=== PATIENT | male | born 1970 | race African-American/Black ===

== ENCOUNTER 2017-03-02 11:52 | Emergency (ER) | payer OTHER ==
[~2017-03-02] VITALS: Ht 180.3 cm; Wt 69.2 kg
[~2017-03-02 11:52] MED LIST: AUGMENTIN875 MG PO; BACTRIM,SEPT1 TABLET PO; CIPRO500 MG PO; CYCLOBENZAPRINE10 MG PO; HIV MEDS; MOTRIN600 MG PO; NAPROSYN250 MG PO; NOHOMEMEDS; OXYCODONE5 MG PO; PERCOCET 5/31 TABLET PO; ZOFRAN4 MG PO
[2017-03-02 12:09] VITALS: BP 130/93
[2017-03-02] MEDS ORDERED: ISENTRESS400 MG PO (13:06)
[2017-03-02] MEDS ORDERED: TRUVADA1 TABLET PO (13:07)
[2017-03-02 13:33] LABS: HEMATOCRIT 41.1 % (38.0-50.0); MCHC 33.3 G/DL (30.0-36.0); MCV 90.1 FL (86-99); MEAN PLAT.VOLUME 11.8 uM^3 (9.0-12.4); PLATELET COUNT 87 K/uL (156-360); RBC DIS.WIDTH-CV 13.5 % (11.8-14.6); RBC DIS.WIDTH-SD 44.7 % (39-53); RED BLOOD COUNT 4.56 M/uL (4.00-5.50); WHITE BLOOD COUNT 7.4 K/uL (4.1-10.2)
[2017-03-02 13:41] LABS: D-DIMER ELISA < 150.00 ng/mLDDU (<230)
[2017-03-02 13:42] LABS: CHLORIDE 105 mEq/L (99-109); POTASSIUM 4.1 mEq/L (3.7-5.4); SODIUM 138 mEq/L (136-147)
[2017-03-02 13:44] LABS: GLUCOSE 115 mg/dL (70-99)
[2017-03-02 13:45] LABS: ANION GAP 8 MEQ/L (2-14)
[2017-03-02 13:48] LABS: GFR ESTIMATE (CALCULATED) > 59 mL/min/
[2017-03-02 13:49] LABS: UREA NITROGEN (BUN) 11 mg/dL (9-23)
[2017-03-02 13:53] LABS: TROP-I INTERPRETATION NEGATIVE; TROPONIN-I < 0.01 ng/mL (0.0-0.30)
[2017-03-02] MEDS ORDERED: FLEXERIL10 MG PO (14:47)
[2017-03-02] MEDS ORDERED: NAPROSYN500 MG PO (14:47)
== END 2017-03-02 15:03 | disposition home or self-care (01) ==
LOC: EME 11:52
PROVIDERS: Physician Assistant Medical
DX: M54.9 Dorsalgia, unspecified (principal); B20 Human immunodeficiency virus [HIV] disease; F17.200 Nicotine dependence, unspecified, uncomplicated
CPT/HCPCS: 71020; 80048; 84484; 85027; 85379; 93005; 99281; 99285; J2270

== ENCOUNTER 2017-04-07 10:16 | Inpatient (IN) | payer OTHER ==
[~2017-04-07] VITALS: Ht 180.3 cm; Wt 63.0 kg
[~2017-04-07 10:16] MED LIST changes: +FLEXERIL10 MG PO; +ISENTRESS400 MG PO; +NAPROSYN500 MG PO; +TRUVADA1 TABLET PO
[2017-04-07 10:39] LABS: HEMATOCRIT 33.4 % (38.0-50.0); HEMOGLOBIN 11.3 G/DL (12.5-16.6); MCH 29.2 PG (29.0-34.0); MCHC 33.8 G/DL (30.0-36.0); MCV 86.3 FL (86-99); PLATELET COUNT 111 K/uL (156-360); RBC DIS.WIDTH-CV 12.9 % (11.8-14.6); RBC DIS.WIDTH-SD 40.7 % (39-53); RED BLOOD COUNT 3.87 M/uL (4.00-5.50); WHITE BLOOD COUNT 13.5 K/uL (4.1-10.2)
[2017-04-07 10:50] LABS: CHLORIDE 100 mEq/L (99-109); POTASSIUM 3.9 mEq/L (3.7-5.4); SODIUM 134 mEq/L (136-147)
[2017-04-07 10:51] LABS: GLUCOSE 139 mg/dL (70-99)
[2017-04-07 10:55] LABS: CREATININE 0.9 mg/dL (0.6-1.3); GFR ESTIMATE (CALCULATED) > 59 mL/min/ (58.99-99999)
[2017-04-07 10:56] LABS: UREA NITROGEN (BUN) 13 mg/dL (9-23)
[2017-04-07 13:07] LABS: ERTH.SED.RATE 59 MM/HR (0-15)
[2017-04-07 13:09] LABS: C-REACTIVE PROTEIN 74.5 MG/L (0-10)
[2017-04-07 13:55] LABS: APPEARANCE SL.HAZY ((CLEAR)); BILIRUBIN NEGATIVE; BLOOD NEGATIVE; COLOR AMBER ((YELLOW)); GLUCOSE (STRIP) NEGATIVE; KETONES NEGATIVE; LEUKOCYTES NEGATIVE; NITRITE NEGATIVE; PROTEIN (STRIP) 30; SPECIFIC GRAVITY 1.021 (1.000-1.030)
[2017-04-07 14:05] LABS: BACTERIA RARE /HPF; EPITHELIAL CELLS RARE /HPF; HYALINE CASTS 0-5 /LPF; MUCUS 4+ /LPF; RED BLOOD CELLS 0-5 /HPF (0-5); UCUL ADDED? NO; WHITE BLOOD CELLS 0-5 /HPF (0-5)
[2017-04-07] MEDS ORDERED: XANAX1 MG PO (16:06)
[2017-04-07] MEDS ORDERED: RISPERDAL2 MG PO (16:06)
[2017-04-07 16:39] VITALS: BP 102/63
[2017-04-07 17:17] LABS: ALBUMIN 3.6 G/DL (3.2-4.8); ALKALINE PHOSPHATASE 77 IU/L (3-129); ALT (GPT) 28 IU/L (3-49); AST (GOT) 48 IU/L (2-34); DIRECT BILIRUBIN 0.2 mg/dL (0.0-0.3); TOTAL BILIRUBIN 0.9 MG/DL (0.0-1.0); TOTAL PROTEIN 7.7 G/DL (6.4-8.3)
[2017-04-07 19:57] VITALS: BP 98/67
[2017-04-08] VITALS: BP 122/97
[2017-04-08 04:00] VITALS: BP 126/79
[2017-04-08 09:12] LABS: HEMATOCRIT 31.2 % (38.0-50.0); HEMOGLOBIN 10.4 G/DL (12.5-16.6); MCHC 33.3 G/DL (30.0-36.0); MCV 86.9 FL (86-99); RBC DIS.WIDTH-CV 12.9 % (11.8-14.6); RBC DIS.WIDTH-SD 41.1 % (39-53); RED BLOOD COUNT 3.59 M/uL (4.00-5.50); WHITE BLOOD COUNT 8.4 K/uL (4.1-10.2)
[2017-04-08 09:20] LABS: CHLORIDE 105 MEQ/L (99-109); POTASSIUM 4.1 MEQ/L (3.7-5.4); SODIUM 136 MEQ/L (136-147)
[2017-04-08 09:25] LABS: CREATININE 0.7 MG/DL (0.6-1.3); GFR ESTIMATE (CALCULATED) > 59 mL/min/ (58.99-99999); UREA NITROGEN (BUN) 10 mg/dL (9-23)
[2017-04-08 09:26] LABS: GLUCOSE 88 mg/dL (70-99)
[2017-04-08 09:28] LABS: PLAT.SUFFICIENCY DECREASED; PLATELET CLUMPS PRESENT - PLATELET COUNTS APPEARS DECREASED; PLATELET COUNT UNABLE TO REPORT K/uL (156-360)
[2017-04-08 11:53] LABS: BENZODIAZEPINES, URINE SCREEN POSITIVE (200 ng/mL)
[2017-04-08 12:26] VITALS: BP 123/84
[2017-04-08 15:51] VITALS: BP 131/89
[2017-04-08 20:35] VITALS: BP 139/90
[2017-04-09 01:06] VITALS: BP 142/99
[2017-04-09 03:01] VITALS: BP 155/106
[2017-04-09 04:34] VITALS: BP 161/103
[2017-04-09 06:47] LABS: HEMATOCRIT 35.8 % (38.0-50.0); HEMOGLOBIN 11.8 G/DL (12.5-16.6); MCH 28.5 PG (29.0-34.0); MCV 86.5 FL (86-99); RBC DIS.WIDTH-CV 12.9 % (11.8-14.6); RBC DIS.WIDTH-SD 40.8 % (39-53); RED BLOOD COUNT 4.14 M/uL (4.00-5.50); WHITE BLOOD COUNT 9.2 K/uL (4.1-10.2)
[2017-04-09 07:07] LABS: CHLORIDE 104 MEQ/L (99-109); CREATININE 0.6 MG/DL (0.6-1.3); GFR ESTIMATE (CALCULATED) > 59 mL/min/ (58.99-99999); GLUCOSE 122 mg/dL (70-99); POTASSIUM 4.2 MEQ/L (3.7-5.4); SODIUM 135 MEQ/L (136-147); UREA NITROGEN (BUN) 7 mg/dL (9-23)
[2017-04-09 07:26] LABS: PLAT.SUFFICIENCY DECREASED; PLATELET CLUMPS PRESENT - PLATELET COUNT APPEARS ADQ.; PLATELET COUNT UNABLE TO REPORT K/uL (156-360)
[2017-04-09 07:48] VITALS: BP 135/87
[2017-04-09 12:19] VITALS: BP 160/88
[2017-04-09 16:00] VITALS: BP 150/94
[2017-04-10 00:06] VITALS: BP 164/105
[2017-04-10 05:42] VITALS: BP 150/90
[2017-04-10 06:06] LABS: HEMATOCRIT 34.7 % (38.0-50.0); HEMOGLOBIN 11.8 G/DL (12.5-16.6); MCH 29.5 PG (29.0-34.0); MCV 86.8 FL (86-99); RBC DIS.WIDTH-CV 13.1 % (11.8-14.6); RBC DIS.WIDTH-SD 41.3 % (39-53); WHITE BLOOD COUNT 11.5 K/uL (4.1-10.2)
[2017-04-10 06:21] LABS: PLATELET COUNT 52 K/uL (156-360)
[2017-04-10 06:50] LABS: CHLORIDE 102 MEQ/L (99-109); CREATININE 0.7 MG/DL (0.6-1.3); GFR ESTIMATE (CALCULATED) > 59 mL/min/ (58.99-99999); GLUCOSE 119 mg/dL (70-99); POTASSIUM 4.4 MEQ/L (3.7-5.4); SODIUM 135 MEQ/L (136-147); UREA NITROGEN (BUN) 6 mg/dL (9-23)
[2017-04-10 08:00] VITALS: BP 158/106
[2017-04-10 15:39] VITALS: BP 132/92
[2017-04-11 00:01] VITALS: BP 136/100; BP 136/88
[2017-04-11 06:41] LABS: HEMATOCRIT 37.5 % (38.0-50.0); HEMOGLOBIN 12.4 G/DL (12.5-16.6); MCH 28.7 PG (29.0-34.0); MCHC 33.1 G/DL (30.0-36.0); MCV 86.8 FL (86-99); RBC DIS.WIDTH-SD 41.3 % (39-53); RED BLOOD COUNT 4.32 M/uL (4.00-5.50); WHITE BLOOD COUNT 11.7 K/uL (4.1-10.2)
[2017-04-11 06:47] LABS: PLATELET COUNT 118 K/uL (156-360)
[2017-04-11 07:42] VITALS: BP 133/100
[2017-04-11] MEDS ORDERED: AMLODIPINE BESYL5 MG PO (15:12)
[2017-04-11] MEDS ORDERED: TRAZODONE HCL50 MG PO (15:12)
[2017-04-11] MEDS ORDERED: MYCOSTATIN 100,60 ML PO (15:12)
[2017-04-11] MEDS ORDERED: NICOTINE PATCH1 EAC2 TD (15:12)
== END 2017-04-11 15:49 | disposition home or self-care (01) | DRG 975 ==
LOC: EME 10:16 → 5SOUTH 15:06 → EDOF 15:06 → ENRESERV 15:07 → 5SOUTH 16:37
PROVIDERS: Emergency Medicine; Internal Medicine; Nurse Practitioner Adult Health
DX: A41.9 Sepsis, unspecified organism (principal); I33.0 Acute and subacute infective endocarditis; B20 Human immunodeficiency virus [HIV] disease; M54.5 Low back pain; B37.0 Candidal stomatitis; N39.0 Urinary tract infection, site not specified; F11.10 Opioid abuse, uncomplicated; Z68.1 Body mass index [BMI] 19.9 or less, adult; R62.7 Adult failure to thrive; D69.6 Thrombocytopenia, unspecified; I08.1 Rheumatic disorders of both mitral and tricuspid valves; B18.2 Chronic viral hepatitis C; B19.10 Unspecified viral hepatitis B without hepatic coma; F12.10 Cannabis abuse, uncomplicated; F14.10 Cocaine abuse, uncomplicated; R32 Unspecified urinary incontinence; B95.4 Other streptococcus as the cause of diseases classified elsewhere; F17.210 Nicotine dependence, cigarettes, uncomplicated; Z79.899 Other long term (current) drug therapy; Z80.1 Family history of malignant neoplasm of trachea, bronchus and lung; Z82.49 Family history of ischemic heart disease and other diseases of the circulatory system
CPT/HCPCS: 71020; 72158; 80048; 80076; 80306 90; 81003; 83605; 85027; 85651; 86140; 87040; 87077; 87086; 87186; 87801; 93306; 97530 GO; J1626; J1650; J1885; J2060; J2405; J2540; J2543; J3370; J7030; J7050; S0028

== ENCOUNTER 2017-11-29 10:06 | Emergency (ER) | payer OTHER ==
[~2017-11-29] VITALS: Ht 180.3 cm; Wt 69.7 kg
[~2017-11-29 10:06] MED LIST changes: +AMLODIPINE BESYL5 MG PO; +MYCOSTATIN 100,60 ML PO; +NICOTINE PATCH1 EAC2 TD; +RISPERDAL2 MG PO; +TRAZODONE HCL50 MG PO; +XANAX1 MG PO
[2017-11-29 10:39] LABS: BASOPHIL (%) 0.3 % (0-1); EOSINOPHIL (%) 2.8 % (0-5); EOSINOPHIL COUNT 0.3 K/uL (0-0.3); HEMATOCRIT 42.6 % (38.0-50.0); HEMOGLOBIN 14.2 G/DL (12.5-16.6); IMMATURE GRANULOCYTE (%) 0.4 % (0.0-0.7); LYMPHOCYTE (%) 25.4 % (15-42); LYMPHOCYTE COUNT 2.6 K/uL (1.0-2.8); MCHC 33.3 G/DL (30.0-36.0); MCV 90.1 FL (86-99); MONOCYTE (%) 5.6 % (3-12); MONOCYTE COUNT 0.6 K/uL (0-0.8); NEUTROPHIL (%) 65.5 % (45-76); NEUTROPHIL COUNT 6.6 K/uL (1.8-6.4); NRBC (%) 0.2 /100 WBC (0-0); PLATELET COUNT 83 K/uL (156-360); RBC DIS.WIDTH-CV 14.3 % (11.8-14.6); RBC DIS.WIDTH-SD 47.1 % (39-53); RED BLOOD COUNT 4.73 M/uL (4.00-5.50); WHITE BLOOD COUNT 10.1 K/uL (4.1-10.2)
[2017-11-29 10:47] LABS: ALBUMIN 4.6 g/dL (3.2-4.8)
[2017-11-29 10:48] LABS: CHLORIDE 103 mEq/L (99-109); POTASSIUM 4.2 mEq/L (3.7-5.4); SODIUM 139 mEq/L (136-147)
[2017-11-29 10:50] LABS: GLUCOSE 89 mg/dL (70-99); TOTAL PROTEIN 8.8 g/dL (6.4-8.3)
[2017-11-29 10:52] LABS: TOTAL BILIRUBIN 0.8 mg/dL (0.0-1.0)
[2017-11-29 10:53] LABS: ALKALINE PHOSPHATASE 90 IU/L (3-129)
[2017-11-29 10:54] LABS: GFR ESTIMATE (CALCULATED) > 59 mL/min/ (58.99-99999)
[2017-11-29 10:55] LABS: AST (GOT) 77 IU/L (2-34); UREA NITROGEN (BUN) 24 mg/dL (9-23)
[2017-11-29 10:56] LABS: ALT (GPT) 72 IU/L (3-49)
[2017-11-29 10:59] LABS: TROP-I INTERPRETATION NEGATIVE; TROPONIN-I < 0.01 ng/mL (0.0-0.30)
[2017-11-29 13:45] LABS: TROP-I INTERPRETATION NEGATIVE; TROPONIN-I < 0.01 ng/mL (0.0-0.30)
[2017-11-29] MEDS ORDERED: NAPROSYN500 MG PO (14:13)
[2017-11-29 14:25] VITALS: BP 110/73
== END 2017-11-29 14:33 | disposition home or self-care (01) ==
LOC: EME 10:06
PROVIDERS: Emergency Medicine
DX: R07.89 Other chest pain (principal); J45.901 Unspecified asthma with (acute) exacerbation; F41.1 Generalized anxiety disorder; B20 Human immunodeficiency virus [HIV] disease; F17.200 Nicotine dependence, unspecified, uncomplicated; Z88.5 Allergy status to narcotic agent
CPT/HCPCS: 71045; 80053; 84484; 85025; 93005; 99281; 99285; J1885; J2060; J2930